=== PATIENT | female | born 1960 | race Caucasian/White ===

== ENCOUNTER 2016-12-06 05:45 | Inpatient (IN) | payer OTHER ==
[2016-11-28 10:47] LABS: BASOPHILS 1.3 %; BASOPHILS ABSOLUTE 0.08 10/3/uL (0.0-0.16); EOSINOPHILS 3.4 %; EOSINOPHILS ABSOLUTE 0.21 10/3/uL (0.0-0.53); HEMATOCRIT 42.1 % (36.0-48.0); HEMOGLOBIN 14.5 g/dL (12.0-16.0); LYMPHOCYTES 28.1 %; LYMPHOCYTES ABSOLUTE 1.74 10/3/uL (0.67-4.30); MEAN CORPUS HGB CONC 34.4 g/dL (32.0-36.0); MEAN CORPUSCULAR HEMOGLOB 31.8 pg (26.0-34.0); MEAN CORPUSCULAR VOLUME 92.3 fL (80-100); MEAN PLATELET VOLUME 10.7 fL (9.2-13.0); MONOCYTES ABSOLUTE 0.37 10/3/uL (0.21-1.20); NEUTROPHILS 61.2 %; PLATELET COUNT 199 10/3/uL (150-400); RBC DISTRIBUTION WIDTH 13.3 % (12.0-16.0); RED CELL COUNT 4.56 10/6/uL (4.0-5.6); WHITE BLOOD CELLS 6.2 10/3/uL (4.5-10.5)
[2016-11-28 10:48] LABS: MANUAL DIFF NO %
[2016-11-28 11:06] LABS: BUN (BLOOD UREA NITROGEN) 8 MG/DL (6-23); CALCIUM, SERUM 8.5 MG/DL (8.5-10.4); CHLORIDE, SERUM 105 MMOL/L (96-112); CO2 (CARBON DIOXIDE) 27 MMOL/L (24-34); CREATININE 0.97 MG/DL (0.55-1.02); GFR AFRICAN AMERICAN 75 ML/MIN (>=60); GFR NON AFRICAN AMERICAN 64 ML/MIN (>=60); GLUCOSE, SERUM 338 MG/DL (60-99); POTASSIUM, SERUM 4.4 MMOL/L (3.5-5.3); SODIUM, SERUM 140 MMOL/L (135-148)
[2016-11-28 12:30] LABS: ASCORBIC ACID (UR NOT ORDER) NEGATIVE (NEG); BILIRUBIN, URINE SMALL (NEG); KETONE, URINE TRACE MG/DL (NEG); LEUKOCYTE ESTERASE(NOT OR NEG (NEG); WBC (NOT ORDERED) (RFLEX) 5 (0-5)
--- NOTE | ~2016-12-06 | OP ---
Record Of Operation [facility] [address] [place]. [address] NAME: GI ROWE : 56 STATUS : ADM IN PAT#: [id number] AGE: 56 ADM/REG DATE : 12/06/16 MR#: [id number] REPORT SERV DATE: 12/06/16 DICTATED BY: UMER HUDDLESTON DATE: 12/06/16 REPORT STATUS : Draft TRANSCRIBED BY: MODL DATE: 12/06/16 DATE OF PROCEDURE: 12/06/2016 PREOPERATIVE DIAGNOSIS: Lifestyle-limiting claudication right leg. POSTOPERATIVE DIAGNOSIS: Lifestyle-limiting claudication right leg. PROCEDURE: 1. Arteriogram right leg via the left groin. 2. Right fem to above knee popliteal bypass with reverse saphenous vein. SURGEON: Umer Huddleston M.D. FELLOW: Hardik. ASSISTANTS: Sebastian and Kathie. ANESTHESIA: General. COMPLICATIONS: None. BLOOD LOSS: 300 mL. HISTORY: The patient is a 56-year-old female with multiple failed percutaneous interventions on the right leg. She continues to have severe short distance claudication. Based on this, it was felt she would benefit from the femoral-popliteal bypass. The patient's distal target is unknown due to recent stent occlusion. So, she would benefit from arteriogram at the same time. This was discussed in detail with the patient. She expressed understanding and desired to proceed. DESCRIPTION OF PROCEDURE: The patient was taken to the operating room and placed in the supine position. She was given general anesthesia without complication. Her bilateral groins and entire right leg were prepped and draped in sterile fashion. Ultrasound was used to identify the common femoral artery on the left. This was accessed under ultrasound guidance with 18-gauge needle. Wire passed easily. The needle was removed. Micropuncture sheath placed. Catheter was passed in the aorta and aortogram performed showing a patent distal aorta. Wire was placed in the catheter. Catheter was guided to the external iliac artery on the right. Arteriogram was performed showing a widely patent common femoral, profunda femoral and superficial femoral arteries, occluded just beyond its origin. There are collaterals from the profunda femoral artery which filled to the level of the popliteal artery above the knee, which is patent and of good size. At this point, wire was placed in the catheter and the catheter removed. Attention was then turned to the right leg. Incision was created just above the knee on the medial aspect and dissection performed to identify the saphenous vein. The [employer] System was then used to free the vein circumferentially to the proximal thigh. Branches were controlled with cautery and divided. A transverse incision was then created in the groin and dissection performed to Record Of Operation [facility] [address] [place]. [address] NAME: GI ROWE : 56 STATUS : ADM IN PAT#: [id number] AGE: 56 ADM/REG DATE : 12/06/16 MR#: [id number] REPORT SERV DATE: 12/06/16 DICTATED BY: UMER HDUDLESTON DATE: 12/06/16 REPORT STATUS : Draft TRANSCRIBED BY: JAYSHREE DATE: 12/06/16 identify the saphenofemoral junction. Multiple vein branches were ligated with silk ties and clips and divided. The saphenous vein was then ligated proximally and divided distal to the stitch. The vein was then pulled from the distal wound and taken on the back table and dilated with heparinized saline. Branches were ligated with silk ties. Small venotomies were closed with 7-0 Prolene suture. The vein was of good size. In the proximal incision, dissection was then performed to identify the common femoral artery, which was of good size, freed circumferentially and isolated with vessel loop. Attention was then turned to the distal thigh, incision created at the level of the femur on the medial aspect. Dissection was performed to identify the above-knee popliteal artery, which was freed circumferentially and isolated vessel loop. A tunneler was tunneled from the proximal to the distal incision and the patient was given 6000 units of heparin intravenously. After more than 3 minutes of heparinization, the common femoral, profunda femoral, superficial femoral arteries were controlled with clamps. An 11 blade was used to create an arteriotomy, was extended with Berry scissors. The vein was placed in a reverse fashion and spatulated, then sewn end-to- side to the common femoral artery with running 6-0 Prolene suture. Upon completion, flow was restored. The vein dilated nicely. There were no significant bleeding points. The vein was then pulled through the Alirio tunneler to the distal incision. There was extensive bleeding and the vein was then brought back out the proximal incision. A large bleeding branch was noted along the vein, which was controlled with 7-0 Prolene suture. The vein was then re-tunneled taking care not to twist it. It was then grasped through the distal incision. The popliteal artery was controlled with vascular clamps. An 11 blade used to create an arteriotomy and was extended with Berry scissors. The vein was beveled and sewn end-to-side to the popliteal artery with running 6-0 Prolene suture. Prior to completion, the vein was flushed. Upon completion, flow was restored. The patient had a graft pedal pulse on the top of her foot. The wounds were irrigated. Hemostasis was achieved. They were then closed in layers with Vicryl suture, followed by Monocryl subcuticular suture and Dermabond dressing applied. The sheath was removed from the left femoral artery and access closed with an Exoseal without difficulty. The patient tolerated the procedure well. She will be extubated in the operating room and taken to recovery. CSJ/NAWAFL Umer Huddleston M.D. / [id number] CC: Kathie Canseco M.D.
[~2016-12-06 05:45] MED LIST: AMARYL2 PO; ASA5GR PO; ASABAYER PO; ATV.5 PO; B-125000 MCG SL; DURA75 TOP; ELIQUIS 5 MG TAB5 MG PO; FORTAMET500 MG PO; GAS-X80 MG PO; GENERLAC PO; GLUCOPHAGE1000 MG PO; GLUCPH PO; GOODY'S EX-STR1 EAC1 PO; I10 PO; I20 PO; L40 PO; LEVOTHYROXIN125 MCG PO; LORTAB10 PO; MAALOX PO; MICRO-K10 MEQ PO; NEUR300 PO; NORCO1 TAB PO; PAX20 PO; PREVASTATIN; PRILO PO; PRILOSEC40 MG PO; PROPYLTHIOUR50 MG OR; SYN.15 PO; SYN1 PO; ZOCOR20 PO; [UNRECOGNIZED DRUG - OTHER] PO
[2016-12-06 13:27] LABS: BUN (BLOOD UREA NITROGEN) 8 MG/DL (6-23); CALCIUM, SERUM 8.6 MG/DL (8.5-10.4); CHLORIDE, SERUM 109 MMOL/L (96-112); CO2 (CARBON DIOXIDE) 28 MMOL/L (24-34); CREATININE 0.75 MG/DL (0.55-1.02); GFR AFRICAN AMERICAN 102 ML/MIN (>=60); GFR NON AFRICAN AMERICAN 88 ML/MIN (>=60); POTASSIUM, SERUM 4.5 MMOL/L (3.5-5.3); SODIUM, SERUM 140 MMOL/L (135-148)
[2016-12-06 13:28] LABS: GLUCOSE, SERUM 206 MG/DL (60-99)
[2016-12-06 13:58] LABS: BASOPHILS 0.5 %; BASOPHILS ABSOLUTE 0.07 10/3/uL (0.0-0.16); EOSINOPHILS ABSOLUTE 0.16 10/3/uL (0.0-0.53); HEMOGLOBIN 12.3 g/dL (12.0-16.0); IMMATURE GRANULOCYTES 0.3 %; IMMATURE GRANULOCYTES ABSOLUTE 0.04 10/3/uL (0.0-0.11); LYMPHOCYTES 12.8 %; LYMPHOCYTES ABSOLUTE 1.98 10/3/uL (0.67-4.30); MEAN CORPUS HGB CONC 33.9 g/dL (32.0-36.0); MEAN CORPUSCULAR HEMOGLOB 31.4 pg (26.0-34.0); MEAN CORPUSCULAR VOLUME 92.6 fL (80-100); MEAN PLATELET VOLUME 10.6 fL (9.2-13.0); MONOCYTES 5.8 %; MONOCYTES ABSOLUTE 0.89 10/3/uL (0.21-1.20); NEUTROPHILS 79.6 %; NEUTROPHILS ABSOLUTE 12.31 10/3/uL (2.02-8.40); PLATELET COUNT 210 10/3/uL (150-400); RED CELL COUNT 3.92 10/6/uL (4.0-5.6)
[2016-12-06 13:59] LABS: HEMATOCRIT 36.3 % (36.0-48.0); MANUAL DIFF NO %; WHITE BLOOD CELLS 15.5 10/3/uL (4.5-10.5)
[2016-12-07 03:34] LABS: BASOPHILS 0.5 %; BASOPHILS ABSOLUTE 0.05 10/3/uL (0.0-0.16); EOSINOPHILS 1.2 %; EOSINOPHILS ABSOLUTE 0.12 10/3/uL (0.0-0.53); HEMOGLOBIN 10.4 g/dL (12.0-16.0); IMMATURE GRANULOCYTES 0.1 %; IMMATURE GRANULOCYTES ABSOLUTE 0.01 10/3/uL (0.0-0.11); LYMPHOCYTES 26.7 %; LYMPHOCYTES ABSOLUTE 2.58 10/3/uL (0.67-4.30); MEAN CORPUS HGB CONC 33.4 g/dL (32.0-36.0); MEAN CORPUSCULAR HEMOGLOB 31.2 pg (26.0-34.0); MEAN CORPUSCULAR VOLUME 93.4 fL (80-100); MEAN PLATELET VOLUME 10.4 fL (9.2-13.0); MONOCYTES 10.6 %; MONOCYTES ABSOLUTE 1.02 10/3/uL (0.21-1.20); NEUTROPHILS 60.9 %; NEUTROPHILS ABSOLUTE 5.87 10/3/uL (2.02-8.40); PLATELET COUNT 186 10/3/uL (150-400); RBC DISTRIBUTION WIDTH 13.1 % (12.0-16.0); RED CELL COUNT 3.33 10/6/uL (4.0-5.6); WHITE BLOOD CELLS 9.7 10/3/uL (4.5-10.5)
[2016-12-07 03:35] LABS: HEMATOCRIT 31.1 % (36.0-48.0); MANUAL DIFF NO %
[2016-12-07 03:42] LABS: BUN (BLOOD UREA NITROGEN) 9 MG/DL (6-23); CALCIUM, SERUM 8.4 MG/DL (8.5-10.4); CHLORIDE, SERUM 105 MMOL/L (96-112); CO2 (CARBON DIOXIDE) 29 MMOL/L (24-34); CREATININE 0.79 MG/DL (0.55-1.02); GFR AFRICAN AMERICAN 96 ML/MIN (>=60); GFR NON AFRICAN AMERICAN 83 ML/MIN (>=60); POTASSIUM, SERUM 4.2 MMOL/L (3.5-5.3); SODIUM, SERUM 140 MMOL/L (135-148)
[2016-12-07 03:43] LABS: GLUCOSE, SERUM 129 MG/DL (60-99)
[2016-12-08 04:55] LABS: BUN (BLOOD UREA NITROGEN) 8 MG/DL (6-23); CALCIUM, SERUM 8.4 MG/DL (8.5-10.4); CHLORIDE, SERUM 105 MMOL/L (96-112); CO2 (CARBON DIOXIDE) 28 MMOL/L (24-34); GFR AFRICAN AMERICAN 94 ML/MIN (>=60); GFR NON AFRICAN AMERICAN 81 ML/MIN (>=60); GLUCOSE, SERUM 266 MG/DL (60-99); SODIUM, SERUM 138 MMOL/L (135-148)
[2017-03-08] MEDS ORDERED: JANUVIA50 PO (12:48)
[2017-03-08] MEDS ORDERED: RELISTOR12 MG/0.6 (12:49)
[2017-03-08] MEDS ORDERED: PROZ10 PO (12:49)
[2017-03-08] MEDS ORDERED: RELISTOR (12:50)
== END 2016-12-08 15:22 | disposition home or self-care (01) | DRG 253 ==
LOC: SDC/OF 05:45 → PACU 12:29 → CVICU 14:10 → 2SO 12-07 19:40
PROVIDERS: Surgery
PROC: 041 Lower Arteries, Bypass (ICD-10-PCS; principal; 2016-12-06 07:45)
PROC: B41F1ZZ Fluoroscopy of Right Lower Extremity Arteries using Low Osmolar Contrast (ICD-10-PCS; 2016-12-06 07:45)
DX: I70.211 Atherosclerosis of native arteries of extremities with intermittent claudication, right leg (principal); D62 Acute posthemorrhagic anemia; E03.9 Hypothyroidism, unspecified; F17.210 Nicotine dependence, cigarettes, uncomplicated; R00.0 Tachycardia, unspecified; Z90.710 Acquired absence of both cervix and uterus; Z98.890 Other specified postprocedural states; Z90.49 Acquired absence of other specified parts of digestive tract; Z90.721 Acquired absence of ovaries, unilateral
CPT/HCPCS: 35556; 36246; 36415; 75625; 75710; 80048; 81001; 82330; 82803; 82947; 82962; 84132; 84295; 85014; 85025; 86850; 86900; 86901; 86920; 87641; 93005; 97116-GP; 97161-GP; A9270-GY; C1760; C1769; C1894; J0690; J1170; J2250; J2370; J2405; J2710; J3010; J3370; Q9967